=== PATIENT | female | born 1950 | race Caucasian/White ===

== ENCOUNTER 2019-01-09 11:25 | Inpatient (IN) ==
[2019-01-09] MEDS ORDERED: Naloxone 0.4 MG/ML INJ IVP PRN (15:29)
[2019-01-09] MEDS ORDERED: *HR* Dextrose 50 % in Water (Syg) 50 ML SYRINGE IVP PRN (16:00)
[2019-01-09] MEDS ORDERED: D5% in Water 1,000 ML IVC PRN (16:00)
[2019-01-09] MEDS ORDERED: Dextrose Gel 15 GM/37.5 ML TUBE PO PRN ×2 (16:00)
[2019-01-09] MEDS ORDERED: *HR* Promethazine 25 MG/ML VIAL IVP PRN (16:38)
[2019-01-09 17:15] LABS: Bilirubin,Urine Negative (Negative); Blood,Urine Negative (Negative); Clarity,Urine Cloudy (Clear); Color,Urine Yellow (Yellow); Glucose,Urine (UA) Normal (Normal); Ketones,Urine Negative (Negative); Leukocyte Esterase,Urine Moderate (Negative); Nitrite,Urine Negative (Negative); Protein,Urine Negative (Neg-Trace); Specific Gravity,Urine 1.018 (1.010-1.025); Urobilinogen,Urine Normal (Normal)
[2019-01-09 17:18] LABS: Bacteria,Urine None Seen per hpf (None-Few); Hyaline Casts,Urine None Seen per lpf (None-Few); Squamous Epithelial Cell,Urine Many per lpf (None-Few)
[2019-01-09 17:25] LABS: Basophils % 0.5 %; Eosinophils # 0.1 K/mcL (0.0-0.6); Eosinophils % 0.6 %; Immature Granulocytes % 0.5 % (0-4); Lymphocytes # 3.9 K/mcL (0.6-4.6); Lymphocytes % 46.3 %; Mean Corpuscular HGB Conc 32.5 g/dL (31.6-35.5); Mean Corpuscular Hemoglobin 27.8 pg (28.0-33.3); Mean Corpuscular Volume 85.7 fL (83.0-100.0); Mean Platelet Volume 10.8 fL (9.4-12.4); Monocytes # 0.6 K/mcL (0.0-1.3); Monocytes % 6.5 %; Neutrophils # 3.9 K/mcL (1.6-8.9); Platelet Count 270 K/mcL (140-400); Red Blood Count 4.67 M/mcL (3.82-4.97); Red Cell Distribution Width 12.9 % (11.5-14.5); Segmented Neutrophils % 45.6 %; White Blood Count 8.4 K/mcL (4.3-11.1)
[2019-01-09 17:37] LABS: BUN/Creatinine Ratio 8 (6-26); Blood Urea Nitrogen 5 mg/dL (8-23); Carbon Dioxide 24 mEq/L (23-29); Chloride 108 mEq/L (98-107); Glucose 106 mg/dL (70-105); Osmolality,Calculated 286 (280-300); Potassium 3.6 mEq/L (3.5-5.1); Sodium 139 mEq/L (136-145); eGFR For African Americans > 60 (> 60); eGFR For Non-African Americans > 60 (> 60)
[2019-01-09 17:57] LABS: RBC,Urine 0-3 per hpf (0-3)
[2019-01-09] MEDS: Insulin LISPRO 300 UNITS/3 ML VIAL SQ SCH ×2 (18:28→23:56)
[2019-01-09] MEDS: 0.9 % Sodium Chloride 1,000 ML IVC SCH (18:36)
[2019-01-09] MEDS: Pantoprazole 40 MG VIAL IVP SCH (18:40)
[2019-01-09] MEDS: Budesonide/Formoterol 160/4.5 1 PUFF INH IH SCH (19:41)
[2019-01-09 22:47] LABS: Hematocrit 37.4 % (35.3-44.9); Hemoglobin 12.1 g/dL (11.5-15.4)
[2019-01-09] MEDS: MetroNIDAZOLE 500 MG/100 ML 500 MG/100 ML BAG IVPB SCH (23:51)
[2019-01-10 02:29] LABS: Basophils # 0.1 K/mcL (0.0-0.2); Basophils % 0.7 %; Eosinophils # 0.1 K/mcL (0.0-0.6); Eosinophils % 0.7 %; Hematocrit 38.5 % (35.3-44.9); Hemoglobin 12.2 g/dL (11.5-15.4); Immature Granulocytes % 0.5 % (0-4); Lymphocytes # 3.6 K/mcL (0.6-4.6); Lymphocytes % 47.7 %; Mean Corpuscular HGB Conc 31.7 g/dL (31.6-35.5); Mean Corpuscular Hemoglobin 27.9 pg (28.0-33.3); Mean Corpuscular Volume 87.9 fL (83.0-100.0); Mean Platelet Volume 10.9 fL (9.4-12.4); Monocytes # 0.5 K/mcL (0.0-1.3); Monocytes % 6.4 %; Neutrophils # 3.3 K/mcL (1.6-8.9); Platelet Count 238 K/mcL (140-400); Red Blood Count 4.38 M/mcL (3.82-4.97); Red Cell Distribution Width 12.6 % (11.5-14.5); White Blood Count 7.5 K/mcL (4.3-11.1)
[2019-01-10 02:35] LABS: INR 1.2; Prothrombin Time 13.6 Seconds (9.4-12.1)
[2019-01-10 02:43] LABS: BUN/Creatinine Ratio 10 (6-26); Blood Urea Nitrogen 6 mg/dL (8-23); Calcium 8.4 mg/dL (8.6-10.3); Carbon Dioxide 22 mEq/L (23-29); Chloride 109 mEq/L (98-107); Glucose 107 mg/dL (70-105); Osmolality,Calculated 286 (280-300); Potassium 3.5 mEq/L (3.5-5.1); Sodium 139 mEq/L (136-145); eGFR For African Americans > 60 (> 60); eGFR For Non-African Americans > 60 (> 60)
[2019-01-10] MEDS: Pantoprazole 40 MG VIAL IVP SCH ×2 (06:24→17:54)
[2019-01-10] MEDS: Levothyroxine 25 MCG TABLET PO SCH (06:24)
[2019-01-10] MEDS: Insulin LISPRO 300 UNITS/3 ML VIAL SQ SCH ×3 (06:32→17:54)
[2019-01-10] MEDS: Budesonide/Formoterol 160/4.5 1 PUFF INH IH SCH ×2 (07:43→20:25)
[2019-01-10] MEDS: Acetaminophen 325 MG TABLET PO PRN ×2 (08:45→20:03)
[2019-01-10] MEDS: MetroNIDAZOLE 500 MG/100 ML 500 MG/100 ML BAG IVPB SCH ×3 (08:45→23:56)
[2019-01-10] MEDS: 0.9 % Sodium Chloride 1,000 ML IVC SCH (08:46)
[2019-01-10] MEDS ORDERED: SODIUM CHLORIDE/NAHCO3/KCL/PEG 4,000 ML SOLN.RECON PO ONE (17:00)
[2019-01-10] MEDS ORDERED: Ondansetron 4 MG/2 ML VIAL IVP PRN (18:57)
[2019-01-10] MEDS ORDERED: *HR* Promethazine 25 MG/ML VIAL IVP PRN (19:00)
[2019-01-11] MEDS: Insulin LISPRO 300 UNITS/3 ML VIAL SQ SCH ×4 (00:30→17:29)
[2019-01-11] MEDS: 0.9 % Sodium Chloride 1,000 ML IVC SCH (00:44)
[2019-01-11] MEDS: Pantoprazole 40 MG VIAL IVP SCH (05:25)
[2019-01-11] MEDS: Levothyroxine 25 MCG TABLET PO SCH (05:27)
[2019-01-11] MEDS: Budesonide/Formoterol 160/4.5 1 PUFF INH IH SCH ×2 (07:49→20:32)
[2019-01-11] MEDS ORDERED: Propofol 500 MG/50 ML INFUS..BTL ONE (08:28)
[2019-01-11] MEDS ORDERED: Lidocaine -MPF 2% 2 ML VIAL ONE (08:28)
[2019-01-11] MEDS ORDERED: Ondansetron 4 MG/2 ML VIAL ONE (08:28)
[2019-01-11] MEDS: MetroNIDAZOLE 500 MG/100 ML 500 MG/100 ML BAG IVPB SCH ×2 (10:20→17:28)
[2019-01-11] MEDS ORDERED: Insulin LISPRO 300 UNITS/3 ML VIAL SQ SCH (21:00)
[2019-01-12] MEDS: 0.9 % Sodium Chloride 1,000 ML IVC SCH ×3 (00:30→15:04)
[2019-01-12] MEDS: MetroNIDAZOLE 500 MG/100 ML 500 MG/100 ML BAG IVPB SCH ×2 (00:31→08:21)
[2019-01-12] MEDS: Levothyroxine 25 MCG TABLET PO SCH (05:47)
[2019-01-12] MEDS: Budesonide/Formoterol 160/4.5 1 PUFF INH IH SCH (07:49)
[2019-01-12] MEDS: Insulin LISPRO 300 UNITS/3 ML VIAL SQ SCH ×2 (08:20→12:48)
[2019-01-12 08:24] LABS: Basophils % 0.5 %; Eosinophils # 0.1 K/mcL (0.0-0.6); Eosinophils % 0.6 %; Hematocrit 37.1 % (35.3-44.9); Hemoglobin 11.7 g/dL (11.5-15.4); Immature Granulocytes % 0.5 % (0-4); Lymphocytes # 2.9 K/mcL (0.6-4.6); Lymphocytes % 35.4 %; Mean Corpuscular HGB Conc 31.5 g/dL (31.6-35.5); Mean Corpuscular Hemoglobin 28.3 pg (28.0-33.3); Mean Corpuscular Volume 89.6 fL (83.0-100.0); Mean Platelet Volume 10.8 fL (9.4-12.4); Monocytes # 0.5 K/mcL (0.0-1.3); Monocytes % 5.7 %; Neutrophils # 4.7 K/mcL (1.6-8.9); Platelet Count 230 K/mcL (140-400); Red Blood Count 4.14 M/mcL (3.82-4.97); Segmented Neutrophils % 57.3 %; White Blood Count 8.2 K/mcL (4.3-11.1)
[2019-01-12] MEDS ORDERED: Psyllium 1 PACKET POWD.PACK PO SCH (09:00)
[2019-01-12 10:38] VITALS: BP 136/80
[2019-01-12] MEDS ORDERED: metroNIDAZOLE 500 MG TABLET PO SCH (15:00)
== END 2019-01-12 15:40 | disposition home or self-care (01) | DRG 392 ==
LOC: 3ANU → SUATTDRO 13:36
PROVIDERS: ADMIT Internal Medicine; ATTEND Internal Medicine